=== PATIENT | female | born 1995 | race Caucasian/White ===

== ENCOUNTER → 2016-07-19 | Outpatient (CLI) | payer BC ==
[2016-07-19 17:56] LABS: CHOLESTEROL/HDL RATIO 4.1
== END | disposition home or self-care (01) ==
LOC: C.LABBFT 12:15
PROVIDERS: ATTEND Physician Assistant Medical
DX: E78.89 Other lipoprotein metabolism disorders (principal)

== ENCOUNTER → 2016-11-24 | Outpatient (CLI) | payer BC ==
--- NOTE | 2016-11-24 14:25 | DIAGNOSTIC IMAGING REPORT ---
C-SPINE ROUTINE 4 OR 5 VIEWS CLINICAL HISTORY: 20 years-old Female presenting with HNP, numbness and tingling over the scapula. TECHNIQUE: Lateral, bilateral oblique, frontal, and open-mouth odontoid views of the cervical spine were obtained. COMPARISON: None. FINDINGS: The C7 vertebral body is fully visualized. Normal cervical lordosis. Vertebral bodies and intervertebral disc spaces preserved. No radiographic evidence of acute fracture or subluxation. No osseous neural foraminal narrowing. No uncovertebral hypertrophy or significant degenerative changes evident. No prevertebral soft tissue swelling. Normal predental interval. Lateral masses of C1 articulate normally with C2. Lung apices clear. IMPRESSION: Normal cervical spine. Electronically signed by: Patricio Layne M.D. 11/24/2016 2:24 PM Dictated Date/Time: 11/24/2016 2:22 PM
== END | disposition home or self-care (01) ==
LOC: C.RAD1850 13:54
PROVIDERS: ATTEND Family Medicine
DX: M50.20 Other cervical disc displacement, unspecified cervical region (principal)